=== PATIENT | male | born 1985 | race Caucasian/White ===

== ENCOUNTER 2020-09-24 07:27 | Emergency (ER) | payer SELFPAY ==
[~2020-09-24] VITALS: Ht 170.2 cm; Wt 65.9 kg
[2020-09-24 07:30] VITALS: BP 109/46
[2020-09-24 08:43] LABS: APPEARANCE,URINE CLEAR (CLEAR); BILIRUBIN,URINE NEGATIVE (NEGATIVE); GLUCOSE, URINE (UA) NEGATIVE (NEGATIVE); KETONES,URINE NEGATIVE (NEGATIVE); LEUKOCYTE ESTERASE ,URINE NEGATIVE (NEGATIVE); NITRATE,URINE NEGATIVE (NEGATIVE); PROTEIN,URINE NEGATIVE (NEGATIVE); UROBILINOGEN,URINE 0.2 mg/dL (<=1.0)
[2020-09-24 09:21] LABS: OCCULT BLOOD,URINE SMALL (NEGATIVE)
[2020-09-24 09:22] LABS: BACTERIA,URINE None Seen /HPF (None Seen); WBC,URINE None Seen /HPF (0-5)
== END 2020-09-24 09:42 | disposition home or self-care (01) ==
LOC: EMS 07:36
DX: S30.812A Abrasion of penis, initial encounter (principal); F17.210 Nicotine dependence, cigarettes, uncomplicated; W50.4XXA Accidental scratch by another person, initial encounter; Y93.89 Activity, other specified; Y92.89 Other specified places as the place of occurrence of the external cause; Y99.8 Other external cause status

== ENCOUNTER 2023-08-17 10:09 | Emergency (ER) | payer MEDICAID, OTHER ==
[~2023-08-17] VITALS: Ht 170.2 cm; Wt 70.5 kg
[2023-08-17 10:19] VITALS: TEMP 98.4
[2023-08-17 10:52] LABS: COVID AG,FIA SOURCE NASAL SWAB
[2023-08-17 11:55] LABS: SARS-COV2 (COVID) ANTIGEN,FIA Negative (Negative)
[2023-08-17] MEDS ORDERED: ALBU18HF12 IH (12:02)
[2023-08-17] MEDS ORDERED: BENZ-227 PO (12:02)
[2023-08-17 12:05] VITALS: BP 118/82; PULSE 76; RESP 18
== END 2023-08-17 12:13 | disposition home or self-care (01) ==
LOC: EMS 10:09
DX: J40 Bronchitis, not specified as acute or chronic (principal); Z20.822 Contact with and (suspected) exposure to COVID-19
CPT/HCPCS: 71045; 99284

== ENCOUNTER 2024-01-06 22:42 | Emergency (ER) | payer OTHER ==
[~2024-01-06] VITALS: Ht 170.2 cm; Wt 68.2 kg
[~2024-01-06 22:42] MED LIST: ALBU18HF12 IH; BENZ-227 PO
[2024-01-06 22:44] VITALS: TEMP 98.3
[2024-01-06 23:31] LABS: BASOPHILS % (AUTO) 1.2 % (0.0-2.0); EOSINOPHILS % (AUTO) 4.8 % (1.0-6.0); HEMATOCRIT 43.9 % (41-53); HEMOGLOBIN 13.8 g/dL (13.5-17.5); LYMPHOCYTES # (AUTO) 3.1 K/uL (1.0-4.8); LYMPHOCYTES % (AUTO) 31.9 % (22.0-44.0); MEAN CORPUSCULAR HGB CONC 31.4 G/dL (31.0-37.0); MEAN CORPUSCULAR VOLUME 64 fL (80-100); MONOCYTES # (AUTO) 0.7 K/uL (0.1-1.0); MONOCYTES % (AUTO) 7.2 % (2.0-9.0); NEUTROPHILS # (AUTO) 5.4 K/uL (1.8-7.7); NEUTROPHILS % (AUTO) 54.9 % (40.0-70.0); PLATELET COUNT (AUTO) 269 K/uL (150-450); RED BLOOD CELL COUNT(AUTO) 6.91 MIL/uL (4.50-5.90); RED CELL DISTRIBUTION WIDTH 15.8 % (11.5-14.5); WHITE BLOOD COUNT (AUTO) 9.8 K/uL (4.5-11.0)
[2024-01-06 23:35] LABS: ANION GAP 11 mmol/L (8-16); CALCIUM, TOTAL 9.4 mg/dL (8.8-10.5); CARBON DIOXIDE 25 mmol/L (22-29); CHLORIDE 104 mmol/L (98-107); CREATININE 1.17 mg/dL (0.60-1.30); GLOMERULAR FILTR. RATE CALC > 60 mL/min (>60); GLUCOSE,RANDOM 124 mg/dL (70-110); SODIUM SERUM 140 mmol/L (136-145); UREA NITROGEN, BLOOD 19 mg/dL (7-18)
[2024-01-06 23:41] LABS: ALANINE AMINOTRANSFERASE 29 U/L (12-78); ALBUMIN 3.6 g/dL (3.4-5.0); ALKALINE PHOSPHATASE 71 U/L (46-116); ASPARTATE AMINOTRANSFERASE 17 U/L (15-37); BILIRUBIN,TOTAL 0.2 mg/dL (0.1-1.0); LIPASE 36 U/L (16-77); TOTAL PROTEIN, SERUM 7.6 g/dL (6.4-8.2)
[2024-01-06 23:43] LABS: TROPONIN I-HIGH SENSITIVITY 5 ng/L (<76)
[2024-01-06 23:59] LABS: RBC MORPHOLOGY COMMENT ABNORMAL RBC MORPH
[2024-01-07] MEDS: ACETAMINOPHEN 500 MG TABLET PO ONE (00:34)
[2024-01-07] MEDS ORDERED: OMEP20 PO (00:34)
[2024-01-07] MEDS: MAG HYDROX/ALUMINUM HYD/SIMETH 30 ML SUSPENSION UDCUP PO ONE (00:34)
[2024-01-07] MEDS: FAMOTIDINE 20 MG TABLET PO ONE (00:34)
[2024-01-07 00:42] VITALS: BP 136/91; PULSE 75; RESP 16
== END 2024-01-07 00:45 | disposition home or self-care (01) ==
LOC: EMS 22:42
DX: R07.89 Other chest pain (principal)
CPT/HCPCS: 71045; 80053; 83690; 84484; 85025; 93005; 99285; 36415-L1; 36415-TC